=== PATIENT | female | born 1985 | race Caucasian/White ===

== ENCOUNTER 2022-02-06 18:17 | Emergency (ER) | payer MEDICAID ==
[~2022-02-06] VITALS: Ht 157.5 cm; Wt 50.0 kg
[2022-02-06 18:33] VITALS: BP 111/83
[2022-02-06] MEDS ORDERED: IBUPROFEN 600MG TABLET PO ONE (23:15)
[2022-02-07 00:11] LABS: CLARITY URINE CLEAR (CLEAR); COLOR URINE YELLOW (YELLOW); KETONES URINE NEGATIVE (NEGATIVE); LEUKOCYTE ESTERASE URINE NEGATIVE (NEGATIVE); NITRITE URINE NEGATIVE (NEGATIVE); OCCULT BLOOD URINE NEGATIVE (NEGATIVE); PROTEIN URINE NEGATIVE (NEGATIVE); SPECIFIC GRAVITY URINE 1.006 (1.005-1.030); UROBILINOGEN URINE 0.2 E.U./dL (0.2-1.0)
[2022-02-07] MEDS ORDERED: AZITHROMYCIN 500 MG TABLET PO ONE (00:30)
[2022-02-07] MEDS ORDERED: GENTAMICIN SULF 40MG/ML 2ML VIAL IM ONE (00:30)
[2022-02-07] MEDS ORDERED: ONDANSETRON 4MG ODT PO ONE (00:45)
== END 2022-02-07 03:20 | disposition home or self-care (01) ==
LOC: ER 18:27
DX: R30.0 Dysuria (principal); M79.662 Pain in left lower leg; M79.661 Pain in right lower leg; G89.29 Other chronic pain; Z88.0 Allergy status to penicillin
CPT/HCPCS: 81003; 81025; 96372; 99284; J1580; Q0162